=== PATIENT | female | born 1985 | race African-American/Black ===

== ENCOUNTER 2023-07-19 08:47 | Outpatient (CLI) | payer BC | END 2023-07-19 08:48 | disposition home or self-care (01) | LOC: BICMAMMO 08:47 | PROVIDERS: ATTEND Nurse Practitioner Women's Health | DX: N63.21 Unspecified lump in the left breast, upper outer quadrant (principal); N60.02 Solitary cyst of left breast | CPT/HCPCS: 77066; G0279 ==